=== PATIENT | male | born 1955 | race African-American/Black ===

== ENCOUNTER 2022-06-17 00:41 | Emergency (ER) | payer OTHER | END 2022-06-17 01:51 | LOC: CSHERS 00:41 | DX: L03.116 Cellulitis of left lower limb (principal); E11.9 Type 2 diabetes mellitus without complications; E78.5 Hyperlipidemia, unspecified; I10 Essential (primary) hypertension; E66.9 Obesity, unspecified; Z79.4 Long term (current) use of insulin; Z79.84 Long term (current) use of oral hypoglycemic drugs; Z79.899 Other long term (current) drug therapy ==